=== PATIENT | male | born 1960 | race Caucasian/White ===

== ENCOUNTER 2017-01-30 19:11 | Inpatient (IN) | payer BC ==
[~2017-01-30] VITALS: Ht 172.7 cm; Wt 103.9 kg
[2017-01-30 19:28] VITALS: BP_SYST 159
[2017-01-30] MEDS ORDERED: ACETAMINOPHEN 500 MG TABLET ONE (20:14)
[2017-01-30] MEDS ORDERED: PIPERACILLIN/TAZO 3.375 GM in NS 50 ML IV ONE (20:15)
[2017-01-30] MEDS ORDERED: KETOROLAC TROMETHAMINE 30 MG VIAL IVP ONE (20:15)
[2017-01-30] MEDS ORDERED: VANCOMYCIN HCL 1,000 MG in NS 250 ML IV ONE (20:15)
[2017-01-30] MEDS ORDERED: NACL 0.9% 1,000 ML IV ONE (20:15)
[2017-01-30] MEDS ORDERED: ACETAMINOPHEN 500 MG TABLET PO ONE (20:15)
[2017-01-30] MEDS ORDERED: LEVO25TA7 PO (20:25)
[2017-01-30 20:43] LABS: BASOPHILS % (AUTO) 0.2 % (0.0-2.0); EOSINOPHILS % (AUTO) 0.4 % (0.0-4.0); HEMATOCRIT 37.7 % (36-54); HEMOGLOBIN 12.9 g/dL (14.0-18.0); LYMPHOCYTES # (AUTO) 0.8 K/uL (1.0-5.5); MEAN CORPUSCULAR HEMOGLOBIN 30 pg (27-31); MEAN CORPUSCULAR HGB CONC 34 % (32-36); MEAN CORPUSCULAR VOLUME 88 fL (79.0-98.0); MONOCYTES # (AUTO) 0.5 K/uL (0.0-1.0); MONOCYTES % (AUTO) 6.3 % (1.7-9.3); NEUTROPHILS # (AUTO) 7.4 K/uL (1.8-7.7); NEUTROPHILS % (AUTO) 84.1 % (40.0-70.0); PLATELET COUNT (AUTO) 209 K/uL (130-430); RED BLOOD CELL COUNT(AUTO) 4.31 MIL/uL (4.2-6.2); RED CELL DISTRIBUTION WIDTH 12.3 % (9.0-15.0); WHITE BLOOD COUNT (AUTO) 8.7 K/uL (4.8-10.8)
[2017-01-30] MEDS ORDERED: PIPERACILLIN/TAZOBACTAM 3.375 GM/VIAL (ZOSYN) IV ONE (20:43)
[2017-01-30] MEDS ORDERED: DIPH-TET-PERTUS Vaccine 0.5 ML VIAL (ADACEL) I.M. ONE (20:45)
[2017-01-30] MEDS ORDERED: VANCOMYCIN HCL 1000 MG/VIAL IV ONE (20:56)
[2017-01-30 21:01] LABS: CALCIUM 8.7 mg/dL (8.4-11.0); CREATININE 1.13 mg/dL (0.55-1.30); POTASSIUM 3.7 mmol/L (3.5-5.1); PROTHROMBIN TIME 10.9 SECS (9.5-12.5)
[2017-01-30 21:06] LABS: ALBUMIN 3.2 g/dL (3.4-4.8); TOTAL BILIRUBIN 1.8 mg/dL (0.0-1.0)
[2017-01-31] MEDS ORDERED: ONDANSETRON HCL 4 MG/2 ML VIAL IVP PRN (00:15)
[2017-01-31 00:37] VITALS: BP_SYST 138
[2017-01-31] MEDS ORDERED: CLINDAMYCIN 600 mg/50mL D5W 50 ML IV ONE (01:00)
[2017-01-31] MEDS ORDERED: CLINDAMYCIN 600 mg/50mL D5W 100 ML IV ONE (01:36)
[2017-01-31] MEDS ORDERED: ceFAZolin SODIUM 1 GM VIAL ONE (01:37)
[2017-01-31] MEDS: ACETAMINOPHEN 325 MG TABLET PO PRN ×3 (03:42→23:30)
[2017-01-31 04:53] VITALS: BP_SYST 148
[2017-01-31] MEDS: CEFAZOLIN 1 GM IVPB PREMIX 50 ML IV SCH ×3 (05:17→21:17)
[2017-01-31] MEDS: CLINDAMYCIN 600 mg/50mL D5W 50 ML IV SCH ×4 (06:18→23:01)
[2017-01-31 08:00] VITALS: BP_SYST 133
[2017-01-31] MEDS: HYDROcodone/ACETAMIN 5-325 MG TAB (NORCO/ VICODIN) PO PRN (09:21)
[2017-01-31] MEDS ORDERED: DEXTROSE 50% JECT 50 ML DISP.SYRIN IVP PRN (11:00)
[2017-01-31] MEDS: LEVOTHYROXINE SODIUM 0.025 MG TABLET PO SCH (11:37)
[2017-01-31] MEDS: LACTOBACILLUS RHAMNOSUS GG 1 CAP CAPSULE PO SCH ×2 (11:37→21:16)
[2017-01-31 12:27] VITALS: BP_SYST 138
[2017-01-31] MEDS: HYDROcodone/ACETAMIN 10-325 MG TAB PO PRN ×2 (13:24→20:16)
[2017-01-31 16:07] VITALS: BP_SYST 135
[2017-01-31 20:00] VITALS: BP_SYST 114
[2017-01-31] MEDS: DOCUSATE SODIUM 250 MG CAPSULE PO SCH (21:16)
[2017-02-01] MEDS: HYDROcodone/ACETAMIN 10-325 MG TAB PO PRN ×2 (00:15→17:23)
[2017-02-01 00:16] VITALS: BP_SYST 123
[2017-02-01 04:49] VITALS: BP_SYST 111
[2017-02-01] MEDS: CEFAZOLIN 1 GM IVPB PREMIX 50 ML IV SCH (05:15)
[2017-02-01] MEDS: CLINDAMYCIN 600 mg/50mL D5W 50 ML IV SCH ×3 (05:55→17:08)
[2017-02-01 07:12] LABS: CALCIUM 8.2 mg/dL (8.4-11.0); CREATININE 1.31 mg/dL (0.55-1.30); POTASSIUM 3.6 mmol/L (3.5-5.1)
[2017-02-01 07:19] LABS: HEMATOCRIT 33.5 % (36-54); HEMOGLOBIN 11.3 g/dL (14.0-18.0); MEAN CORPUSCULAR HEMOGLOBIN 30 pg (27-31); MEAN CORPUSCULAR HGB CONC 34 % (32-36); MEAN CORPUSCULAR VOLUME 89 fL (79.0-98.0); PLATELET COUNT (AUTO) 160 K/uL (130-430); RED BLOOD CELL COUNT(AUTO) 3.76 MIL/uL (4.2-6.2); WHITE BLOOD COUNT (AUTO) 7.8 K/uL (4.8-10.8)
[2017-02-01 07:22] LABS: ALBUMIN 2.6 g/dL (3.4-4.8); FREE T4 (FREE THYROXINE) 1.3 ng/dl (0.8-1.5); TOTAL BILIRUBIN 2.5 mg/dL (0.0-1.0)
[2017-02-01] MEDS: ACETAMINOPHEN 325 MG TABLET PO PRN (07:33)
[2017-02-01 07:48] VITALS: BP_SYST 128
[2017-02-01 09:20] LABS: ATYPICAL LYMPHOCYTES % 0 % (0-0); BAND % (MANUAL) 8 % (0-6); LYMPHOCYTES % (MANUAL) 10 % (20-46)
[2017-02-01 09:21] LABS: BASOPHILS % (MANUAL) 0 % (0-2); EOSINOPHILS % (MANUAL) 0 % (0-7); MONOCYTES % (MANUAL) 6 % (0-11)
[2017-02-01] MEDS: LACTOBACILLUS RHAMNOSUS GG 1 CAP CAPSULE PO SCH ×2 (09:22→21:54)
[2017-02-01] MEDS: LEVOTHYROXINE SODIUM 0.025 MG TABLET PO SCH (09:22)
[2017-02-01] MEDS: DOCUSATE SODIUM 250 MG CAPSULE PO SCH ×2 (09:23→21:54)
[2017-02-01] MEDS: INSULIN REGULAR, HUMAN 100 UNITS/ML, 10 ML VIAL (novoLIN R) SUBCUT PRN ×2 (11:32→16:57)
[2017-02-01] MEDS: HYDROcodone/ACETAMIN 5-325 MG TAB (NORCO/ VICODIN) PO PRN (11:36)
[2017-02-01 13:00] VITALS: BP_SYST 132
[2017-02-01 16:20] VITALS: BP_SYST 126
[2017-02-01] MEDS: MAG-AL HYDROX/SIMETH 30 ML UDC PO PRN (16:56)
[2017-02-01 20:00] VITALS: BP_SYST 148
[2017-02-01] MEDS: CEFTAROLINE FOSAMIL ACETATE 600 MG in NS 250 ML IV SCH (21:54)
[2017-02-02] VITALS (7 sets, daily range): BP systolic 108–148
[2017-02-02] MEDS: CLINDAMYCIN 600 mg/50mL D5W 50 ML IV SCH ×4 (01:04→17:33)
[2017-02-02] MEDS: MAG-AL HYDROX/SIMETH 30 ML UDC PO PRN (01:39)
[2017-02-02] MEDS: LACTOBACILLUS RHAMNOSUS GG 1 CAP CAPSULE PO SCH ×2 (08:34→20:59)
[2017-02-02] MEDS: CEFTAROLINE FOSAMIL ACETATE 600 MG in NS 250 ML IV SCH ×2 (08:34→20:58)
[2017-02-02] MEDS: LEVOTHYROXINE SODIUM 0.025 MG TABLET PO SCH (08:34)
[2017-02-02] MEDS: DOCUSATE SODIUM 250 MG CAPSULE PO SCH ×2 (08:34→20:59)
[2017-02-02] MEDS: ACETAMINOPHEN 325 MG TABLET PO PRN ×2 (10:45→20:59)
[2017-02-03] MEDS: CLINDAMYCIN 600 mg/50mL D5W 50 ML IV SCH ×5 (00:52→23:22)
[2017-02-03 06:06] VITALS: BP_SYST 137
[2017-02-03 08:19] VITALS: BP_SYST 155
[2017-02-03] MEDS: LEVOTHYROXINE SODIUM 0.025 MG TABLET PO SCH (08:29)
[2017-02-03] MEDS: LACTOBACILLUS RHAMNOSUS GG 1 CAP CAPSULE PO SCH ×2 (08:29→20:36)
[2017-02-03] MEDS: DOCUSATE SODIUM 250 MG CAPSULE PO SCH ×2 (08:29→20:44)
[2017-02-03] MEDS: CEFTAROLINE FOSAMIL ACETATE 600 MG in NS 250 ML IV SCH ×2 (08:30→20:35)
[2017-02-03] MEDS: IBUPROFEN 600 MG TABLET PO PRN ×2 (11:09→20:44)
[2017-02-03 11:30] VITALS: BP_SYST 156
[2017-02-03 16:38] VITALS: BP_SYST 148
[2017-02-03 20:00] VITALS: BP_SYST 140
[2017-02-04 00:46] VITALS: BP_SYST 126
[2017-02-04 04:00] VITALS: BP_SYST 128
[2017-02-04] MEDS: CLINDAMYCIN 600 mg/50mL D5W 50 ML IV SCH ×4 (05:22→23:05)
[2017-02-04 07:38] LABS: BASOPHILS % (AUTO) 0.1 % (0.0-2.0); EOSINOPHILS # (AUTO) 0.2 K/uL (0.0-0.4); EOSINOPHILS % (AUTO) 3.3 % (0.0-4.0); HEMATOCRIT 32.4 % (36-54); HEMOGLOBIN 11.1 g/dL (14.0-18.0); LYMPHOCYTES % (AUTO) 15.7 % (20.5-51.5); MEAN CORPUSCULAR HEMOGLOBIN 30 pg (27-31); MEAN CORPUSCULAR HGB CONC 34 % (32-36); MEAN CORPUSCULAR VOLUME 88 fL (79.0-98.0); MONOCYTES # (AUTO) 0.5 K/uL (0.0-1.0); MONOCYTES % (AUTO) 8.5 % (1.7-9.3); NEUTROPHILS # (AUTO) 4.7 K/uL (1.8-7.7); NEUTROPHILS % (AUTO) 72.4 % (40.0-70.0); PLATELET COUNT (AUTO) 254 K/uL (130-430); RED BLOOD CELL COUNT(AUTO) 3.68 MIL/uL (4.2-6.2); RED CELL DISTRIBUTION WIDTH 13.6 % (9.0-15.0); WHITE BLOOD COUNT (AUTO) 6.4 K/uL (4.8-10.8)
[2017-02-04 08:00] VITALS: BP_SYST 145
[2017-02-04 08:28] LABS: CALCIUM 9.1 mg/dL (8.4-11.0); CREATININE 1.01 mg/dL (0.55-1.30); POTASSIUM 3.6 mmol/L (3.5-5.1)
[2017-02-04] MEDS: LEVOTHYROXINE SODIUM 0.025 MG TABLET PO SCH (08:46)
[2017-02-04] MEDS: CEFTAROLINE FOSAMIL ACETATE 600 MG in NS 250 ML IV SCH ×2 (08:46→20:46)
[2017-02-04] MEDS: LACTOBACILLUS RHAMNOSUS GG 1 CAP CAPSULE PO SCH ×2 (08:46→21:07)
[2017-02-04] MEDS: DOCUSATE SODIUM 250 MG CAPSULE PO SCH ×2 (08:46→21:07)
[2017-02-04 12:23] VITALS: BP_SYST 153
[2017-02-04 17:07] VITALS: BP_SYST 146
[2017-02-04] MEDS: ACETAMINOPHEN 325 MG TABLET PO PRN (17:45)
[2017-02-04 19:30] VITALS: BP_SYST 151
[2017-02-04] MEDS: IBUPROFEN 600 MG TABLET PO PRN (20:00)
[2017-02-05 00:58] VITALS: BP_SYST 122
[2017-02-05 04:16] VITALS: BP_SYST 136
[2017-02-05] MEDS: CLINDAMYCIN 600 mg/50mL D5W 50 ML IV SCH ×2 (05:01→12:09)
[2017-02-05] MEDS: IBUPROFEN 600 MG TABLET PO PRN (06:16)
[2017-02-05 08:15] VITALS: BP_SYST 144
[2017-02-05] MEDS: DOCUSATE SODIUM 250 MG CAPSULE PO SCH (09:00)
[2017-02-05] MEDS ORDERED: MULT PO (09:28)
[2017-02-05] MEDS: CEFTAROLINE FOSAMIL ACETATE 600 MG in NS 250 ML IV SCH (09:29)
[2017-02-05] MEDS: LEVOTHYROXINE SODIUM 0.025 MG TABLET PO SCH (09:29)
[2017-02-05] MEDS: LACTOBACILLUS RHAMNOSUS GG 1 CAP CAPSULE PO SCH (09:29)
[2017-02-05] MEDS ORDERED: CHOL2000 PO (09:29)
[2017-02-05 11:35] VITALS: BP_SYST 141
[2017-02-05 13:37] VITALS: BP_SYST 141
== END 2017-02-05 14:00 | disposition home health service (06) | DRG 603 ==
LOC: SED 19:11 → SMU 01-31 00:07
PROVIDERS: ADMIT Internal Medicine; ATTEND Internal Medicine
DX: L03.115 Cellulitis of right lower limb (principal); E44.0 Moderate protein-calorie malnutrition; I89.0 Lymphedema, not elsewhere classified; E03.9 Hypothyroidism, unspecified; E66.9 Obesity, unspecified; S80.821A Blister (nonthermal), right lower leg, initial encounter; X58.XXXA Exposure to other specified factors, initial encounter; Y93.89 Activity, other specified; Y92.89 Other specified places as the place of occurrence of the external cause; Y99.8 Other external cause status; Z68.34 Body mass index [BMI] 34.0-34.9, adult; Z83.3 Family history of diabetes mellitus
CPT/HCPCS: 36415; 73590-TC; 80048; 80053; 82962; 83036; 83605; 84439; 85007; 85025; 85027; 85610-TC; 85730-TC; 87040-TC; 87070-TC; 87081; 90715; 93971; 96365; 96367; 96375; 99285; J0690; J0712; J1815; J1885; J2543; J3370; J3490; J7030; J7050

== ENCOUNTER 2023-10-31 13:03 | Emergency (ER) | payer BC, OTHER ==
[~2023-10-31] VITALS: Ht 172.7 cm; Wt 106.6 kg
[~2023-10-31 13:03] MED LIST: CHOL2000 PO; LEVO25TA7 PO; MULT PO
[2023-10-31 13:12] VITALS: BP_SYST 135; PULSE 74; RESP 17; TEMP 96; O2SAT 96
[2023-10-31] MEDS: DIPHTH,PERTUSS(ACELL),TET VAC 0.5 ML VIAL (Tdap) I.M. ONE (13:30)
[2023-10-31] MEDS: LIDOCAINE 1% 10 MG/ML, 20 ML MDV INJ ONE (13:30)
[2023-10-31] MEDS: BACITRACIN 1 GM OINT TP ONE (13:30)
[2023-10-31] MEDS ORDERED: LIDOCAINE 1%, 20 ML MDV 20 ML ONE (13:32)
== END 2023-10-31 14:20 | disposition home or self-care (01) ==
LOC: SED 13:03
DX: S61.211A Laceration without foreign body of left index finger without damage to nail, initial encounter (principal); Z23 Encounter for immunization; I10 Essential (primary) hypertension; Z79.899 Other long term (current) drug therapy; Z79.2 Long term (current) use of antibiotics; W27.0XXA Contact with workbench tool, initial encounter; Y93.89 Activity, other specified; Y92.89 Other specified places as the place of occurrence of the external cause; Y99.8 Other external cause status
CPT/HCPCS: 90715; 99283; J2001

== ENCOUNTER 2023-11-05 11:29 | Emergency (ER) | payer BC ==
[~2023-11-05] VITALS: Ht 172.7 cm; Wt 106.6 kg
[2023-11-05 11:39] VITALS: BP_SYST 153; PULSE 68; RESP 22; TEMP 98.3; O2SAT 98
[2023-11-05 11:58] VITALS: BP_SYST 153; PULSE 68; RESP 22; TEMP 98.3; O2SAT 98
== END 2023-11-05 11:57 | disposition home or self-care (01) ==
LOC: SED 11:29
DX: S61.211D Laceration without foreign body of left index finger without damage to nail, subsequent encounter (principal); Z48.02 Encounter for removal of sutures; I10 Essential (primary) hypertension; Z79.899 Other long term (current) drug therapy; Z79.2 Long term (current) use of antibiotics; X58.XXXD Exposure to other specified factors, subsequent encounter
CPT/HCPCS: 99281